=== PATIENT | male | born 1995 | race Asian ===

== ENCOUNTER 2025-02-22 14:26 | Emergency (ER) | payer OTHER ==
[~2025-02-22] VITALS: Ht 165.1 cm; Wt 62.6 kg
[2025-02-22] MEDS: MUPIROCIN OINT 2% 22 GM TUBE TP ONE (16:25)
[2025-02-22] MEDS ORDERED: TDAP [DIPH/PERTUSSIS/TET] 0.5 ML VIAL IM ONE (16:34)
[2025-02-22] MEDS: TDAP [DIPH/PERTUSSIS/TET] 0.5 ML VIAL IM ONE (16:37)
[2025-02-22 17:20] VITALS: BP 118/72; TEMP 98.1; O2SAT 98
== END 2025-02-22 17:20 ==
LOC: ER 14:36
DX: S96.812A Strain of other specified muscles and tendons at ankle and foot level, left foot, initial encounter (principal); X58.XXXA Exposure to other specified factors, initial encounter; Y93.39 Activity, other involving climbing, rappelling and jumping off; Y92.89 Other specified places as the place of occurrence of the external cause; Y99.8 Other external cause status
CPT/HCPCS: 73630-TC; 90715